=== PATIENT | female | born 1995 | race Caucasian/White ===

== ENCOUNTER → 2019-08-20 | Outpatient (CLI) | payer OTHER | END | disposition home or self-care (01) | LOC: LAB SHORT 18:51 → LAB EV 18:51 | DX: R21 Rash and other nonspecific skin eruption (principal) | CPT/HCPCS: U0002 ==

== ENCOUNTER → 2021-02-09 | Outpatient (CLI) | payer OTHER | LOC: LAB SHORT 17:00 → LAB 17:00 | DX: R30.0 Dysuria (principal) | CPT/HCPCS: 87077; 87086; 87186 ==

== ENCOUNTER → 2022-05-24 | Outpatient (CLI) | payer OTHER ==
[2022-05-24 13:08] LABS: Source, Urine Clean Catch
[2022-05-24 15:31] LABS: Bacteria Few /hpf; Red Blood Cells, Urine 0-2 /hpf (0-2); Squamous Epithelial Cells Few /hpf (Few); White Blood Cells, Urine 0-2 /hpf (0-5)
== END | disposition home or self-care (01) ==
LOC: LAB SHORT 11:10 → LAB 11:10
PROVIDERS: Advanced Practice Midwife
DX: Z34.01 Encounter for supervision of normal first pregnancy, first trimester (principal)
CPT/HCPCS: 81015; 87086

== ENCOUNTER → 2022-11-30 | Outpatient (CLI) | payer OTHER ==
[2022-11-30 18:10] LABS: BASOPHILS ABSOLUTE AUTO 0.03 K/mm3 (0.00-0.23); BASOPHILS PERCENT AUTO 0 % (0-2); EOSINOPHILS PERCENT AUTO 1 % (0-6); Hematocrit 36.8 % (33.0-51.0); Hemoglobin 12.7 g/dL (11.5-16.0); IMMATURE GRAN ABSOLUTE AUTO 0.07 K/mm3 (0.00-0.10); IMMATURE GRAN PERCENT AUTO 1 % (0-1); LYMPHOCYTES ABSOLUTE AUTO 1.67 K/mm3 (0.84-5.20); LYMPHOCYTES PERCENT AUTO 19 % (21-46); MONOCYTES ABSOLUTE AUTO 0.73 K/mm3 (0.16-1.47); MONOCYTES PERCENT AUTO 8 % (4-13); Mean Corpuscular HGB 30.6 pg (26.0-34.0); Mean Corpuscular HGB Conc 34.5 g/dL (31.5-36.5); Mean Corpuscular Volume 89 fL (80-100); NEUTROPHILS ABSOLUTE AUTO 6.09 K/mm3 (1.96-9.15); NEUTROPHILS PERCENT AUTO 70 % (41-73); Platelet Count 129 K/mm3 (150-400); RDW Coefficient Variation 13.7 % (11.7-14.2); RDW Standard Deviation 44.5 fL (35.1-46.3); Red Blood Cell Count 4.15 M/mm3 (3.80-5.20); White Blood Cell Count 8.69 K/mm3 (4.00-11.30)
== END | disposition home or self-care (01) ==
LOC: LAB 16:39 → LAB SHORT 16:39
PROVIDERS: Obstetrics & Gynecology
DX: D69.6 Thrombocytopenia, unspecified (principal)
CPT/HCPCS: 85025

== ENCOUNTER → 2022-12-20 | Outpatient (CLI) | payer OTHER ==
[2022-12-20 19:32] LABS: BASOPHILS ABSOLUTE AUTO 0.05 K/mm3 (0.00-0.23); BASOPHILS PERCENT AUTO 1 % (0-2); EOSINOPHILS ABSOLUTE AUTO 0.11 K/mm3 (0.00-0.68); EOSINOPHILS PERCENT AUTO 1 % (0-6); Hematocrit 41.2 % (33.0-51.0); Hemoglobin 14.1 g/dL (11.5-16.0); IMMATURE GRAN ABSOLUTE AUTO 0.05 K/mm3 (0.00-0.10); IMMATURE GRAN PERCENT AUTO 1 % (0-1); LYMPHOCYTES ABSOLUTE AUTO 1.69 K/mm3 (0.84-5.20); LYMPHOCYTES PERCENT AUTO 18 % (21-46); MONOCYTES ABSOLUTE AUTO 0.82 K/mm3 (0.16-1.47); MONOCYTES PERCENT AUTO 9 % (4-13); Mean Corpuscular HGB 30.5 pg (26.0-34.0); Mean Corpuscular HGB Conc 34.2 g/dL (31.5-36.5); Mean Corpuscular Volume 89 fL (80-100); Mean Platelet Volume 10.7 fL (9.1-12.4); NEUTROPHILS ABSOLUTE AUTO 6.66 K/mm3 (1.96-9.15); NEUTROPHILS PERCENT AUTO 71 % (41-73); Platelet Count 140 K/mm3 (150-400); RDW Coefficient Variation 13.6 % (11.7-14.2); RDW Standard Deviation 44.2 fL (35.1-46.3); Red Blood Cell Count 4.63 M/mm3 (3.80-5.20); White Blood Cell Count 9.38 K/mm3 (4.00-11.30)
[2022-12-20 19:44] LABS: Protein, Urine Random <5.0 mg/dL (0.0-11.9); Protein/Creat Ratio, Ur Random Unable to Calculate
[2022-12-20 20:42] LABS: Albumin, Blood 3.2 g/dL (3.4-5.0); Albumin/Globulin Ratio 0.7 (0.8-1.8); Bilirubin, Total 0.3 mg/dL (0.1-1.0); Calcium, Blood 9.3 mg/dL (8.5-10.1); Creatinine, Blood 0.8 mg/dL (0.40-1.00); Globulin, Blood 4.3 g/dL (2.2-4.0); Potassium, Blood 3.7 mmol/L (3.5-5.5); Total Protein, Blood 7.5 g/dL (6.4-8.2)
== END | disposition home or self-care (01) ==
LOC: LAB SHORT 16:35 → LAB 16:35
PROVIDERS: Advanced Practice Midwife
DX: D69.6 Thrombocytopenia, unspecified (principal)
CPT/HCPCS: 80053; 82570; 84156; 85025

== ENCOUNTER 2023-01-01 18:58 | Inpatient (IN) | payer OTHER ==
[~2023-01-01] VITALS: Ht 167.6 cm; Wt 102.2 kg
[2023-01-01 19:15] VITALS: BP 130/90
[2023-01-01 19:57] LABS: BASOPHILS ABSOLUTE AUTO 0.02 K/mm3 (0.00-0.23); BASOPHILS PERCENT AUTO 0 % (0-2); EOSINOPHILS ABSOLUTE AUTO 0.12 K/mm3 (0.00-0.68); EOSINOPHILS PERCENT AUTO 1 % (0-6); Hematocrit 37.2 % (33.0-51.0); Hemoglobin 12.9 g/dL (11.5-16.0); IMMATURE GRAN ABSOLUTE AUTO 0.07 K/mm3 (0.00-0.10); IMMATURE GRAN PERCENT AUTO 1 % (0-1); LYMPHOCYTES ABSOLUTE AUTO 1.77 K/mm3 (0.84-5.20); LYMPHOCYTES PERCENT AUTO 21 % (21-46); MONOCYTES ABSOLUTE AUTO 0.83 K/mm3 (0.16-1.47); MONOCYTES PERCENT AUTO 10 % (4-13); Mean Corpuscular HGB 30.1 pg (26.0-34.0); Mean Corpuscular HGB Conc 34.7 g/dL (31.5-36.5); Mean Corpuscular Volume 87 fL (80-100); Mean Platelet Volume 10.5 fL (9.1-12.4); NEUTROPHILS ABSOLUTE AUTO 5.79 K/mm3 (1.96-9.15); NEUTROPHILS PERCENT AUTO 67 % (41-73); Platelet Count 135 K/mm3 (150-400); RDW Coefficient Variation 13.3 % (11.7-14.2); RDW Standard Deviation 42.4 fL (35.1-46.3); Red Blood Cell Count 4.28 M/mm3 (3.80-5.20)
[2023-01-01 21:13] VITALS: BP 104/68
[2023-01-01] MEDS ORDERED: ASPI81CH PO (22:30)
[2023-01-01] MEDS ORDERED: Calcium Carbon500 MG (22:31)
[2023-01-01] MEDS ORDERED: PRENATAL TABLE1 EAC2 PO (22:31)
[2023-01-02] VITALS (29 sets, daily range): BP systolic 94–137; BP diastolic 55–95
--- NOTE | 2023-01-02 09:42 | NUR ---
Pt. is awake in bed and welcomes my visit. Spouse is present. Both Pt. and Spouse are known to this block and case maker outside the hospital. Rapport is re-established quickly. Pt. is pleasant. Facilitate conversation regarding the progress of Pts. and considered matters of epi. belief, and home life. Pt. displays evidence of engagement and trust, as does the spouse. Prayed with Pt. and spouse, both vertbalized gratitude for the spiritual care visit and welcomed this block and case maker to return.
[2023-01-03] VITALS (17 sets, daily range): BP systolic 109–139; BP diastolic 67–91
[2023-01-03 05:58] LABS: Hematocrit 32.3 % (33.0-51.0); Hemoglobin 11.2 g/dL (11.5-16.0); Mean Corpuscular HGB 30.3 pg (26.0-34.0); Mean Corpuscular HGB Conc 34.7 g/dL (31.5-36.5); Mean Corpuscular Volume 87 fL (80-100); Mean Platelet Volume 10.1 fL (9.1-12.4); Platelet Count 127 K/mm3 (150-400); RDW Coefficient Variation 13.2 % (11.7-14.2); RDW Standard Deviation 42.1 fL (35.1-46.3); White Blood Cell Count 16.51 K/mm3 (4.00-11.30)
--- NOTE | 2023-01-03 08:14 | NUR ---
pt is just crying, she reports that everytime she tries to sleep she wakes up with nightmares of her repair after delivery. she denies any pain, she has no other complaints, just everytime she tries to sleep it is a nightmare. contacted olya in care managment for a consult. offered for pt to leave the lights on or a little light on while tring to sleep so she can orient herself quicker to the room if she wakes up. her is at the bedside supportive laying in bed holding her.
--- NOTE | 2023-01-03 08:45 | NUR ---
DR CHAN TALKING WITH PT IN ROOM. DR CHAN WAS IN THE [place] AND EXPLAINED WHAT WAS HAPPENING WITH THE PT. JHOANA FROM CARE MANAGEMENT WAS GOING TO SEND GENO DOWN TO SEE PT.
--- NOTE | 2023-01-03 08:52 | NUR ---
Pt. is awake in bed and welcomes my visit. Spouse is present and supportive. Pt. displays evidence of anxiety and some level of trauma. Tears are flowing. Listen with empathy and a calming presence, allowing Pt. to verbalize the of her baby girl. Gentle pastoral risk reduction counselor is given. Pt. began to display evidence of less anxiety and emotion. Prayed with Pt. and spouse. Both verbalized gratitude for the spiritual care visit. This clinical trial specialist will remain available to the family.
--- NOTE | 2023-01-03 10:00 | NUR ---
LIGHTS OFF, PT HAS BACK TO DOOR. TRYING TO REST.
--- NOTE | 2023-01-03 13:49 | NUR ---
PT AWAKE UP IN SHOWER, WILL DO VS AFTER SHOWER, PT IS FEELING BETTER
[2023-01-04 01:19] VITALS: BP 124/68
[2023-01-04 03:58] VITALS: BP 110/65
[2023-01-04 09:22] VITALS: BP 99/59
[2023-01-04] MEDS ORDERED: IBUP800 PO (16:56)
--- NOTE | 2023-01-04 17:16 | NUR ---
Pt. is soundly sleeping, and baby is under the Bili light. Spouse is present and welcomes my visit. Facilitate a review of the past 48 hours and consideration of discharge moving forward. Gave pastoral encouragement to the spouse but did not disturb the girls. Spouse verbalized gratitude for the visit.
[2023-01-04] MEDS ORDERED: LORA.5 PO (18:46)
== END 2023-01-04 19:05 | disposition home or self-care (01) | DRG 806 ==
LOC: OBS 18:58 → BC 19:30
PROVIDERS: ADMIT Advanced Practice Midwife
PROC: 10E0XZZ Delivery of Products of Conception, External Approach (ICD-10-PCS; principal; 2023-01-03)
PROC: 0KQM0ZZ Repair Perineum Muscle, Open Approach (ICD-10-PCS; 2023-01-03)
PROC: 3E0R3BZ Introduction of Anesthetic Agent into Spinal Canal, Percutaneous Approach (ICD-10-PCS; 2023-01-03)
PROC: 00HU33Z Insertion of Infusion Device into Spinal Canal, Percutaneous Approach (ICD-10-PCS; 2023-01-03)
PROC: 0U7C7ZZ Dilation of Cervix, Via Natural or Artificial Opening (ICD-10-PCS; 2023-01-03)
PROC: 10907ZC Drainage of Amniotic Fluid, Therapeutic from Products of Conception, Via Natural or Artificial Opening (ICD-10-PCS; 2023-01-03)
DX: O99.12 Other diseases of the blood and blood-forming organs and certain disorders involving the immune mechanism complicating childbirth (principal); D69.3 Immune thrombocytopenic purpura; Z37.0 Single live birth; O99.354 Diseases of the nervous system complicating childbirth; O72.1 Other immediate postpartum hemorrhage; G43.109 Migraine with aura, not intractable, without status migrainosus; O70.1 Second degree perineal laceration during delivery; Z3A.39 39 weeks gestation of pregnancy; Z79.899 Other long term (current) drug therapy
CPT/HCPCS: 36415; 51702; 59200; 85025; 85027; 86850; 86900; 86901; 86923; A9270; J1885; J2210; J2270; J2405; J2590; J3010; J7120